=== PATIENT | female | born 1935 | race Caucasian/White ===

== ENCOUNTER 2018-02-07 14:13 | Inpatient (IN) | payer OTHER ==
[~2018-02-07] VITALS: Ht 152.4 cm; Wt 116.2 kg
[~2018-02-07 14:13] MED LIST: ADV250/50 INH; COL100 PO; DALIRESP500 MC1 PO; FUROSEMIDE40 MG PO; GABAPENTIN600 M1 PO; LEVOTHYROXIN0.075 M2 PO; MIRAPEX0.25 MG PO; NEXIUM40 MG PO; NORCO1 TA2 PO; PREDNISONE2.5 MG PO; SPIRIVA18 MC1 IH; XANAX0.5 MG PO
[2018-02-07 14:19] VITALS: Ht 152.4 cm; Wt 116.2 kg
[2018-02-07 16:05] LABS: BASOPHIL % 0.5 % (0-2); PLATELET COUNT 227 x10^3mcL (130-400)
[2018-02-07 16:12] LABS: microscopic required? NO
[2018-02-07 16:15] LABS: CALCIUM 8.9 mg/dL (8.5-10.1); CARBON DIOXIDE 29.9 mmol/L (21-32); CHLORIDE SERUM 101 mmol/L (98-107); CREATININE SERUM 0.8 mg/dL (0.6-1.0); GLUCOSE SERUM 88 mg/dL (74-106); SODIUM SERUM 138 mmol/L (136-145)
[2018-02-07 16:17] LABS: UA SPECIFIC GRAVITY <=1.005 (1.005-1.035); urine erythrocyte NEGATIVE (NEGATIVE)
[2018-02-07 16:20] LABS: ALBUMIN 3.5 g/dL (3.4-5.0); ALKALINE PHOSPHATASE 94 U/L (46-116); ALT/SGPT 25 U/L (14-59); AST/SGOT 24 U/L (15-37); BILIRUBIN TOTAL 0.3 mg/dL (0.20-1.00); TOTAL PROTEIN, SERUM 7.6 g/dL (6.4-8.2)
[2018-02-07] MEDS ORDERED: NATURE'S BLEND F1 MG PO (16:23)
[2018-02-07] MEDS ORDERED: MULTI-VITAMINS1 TAB PO (16:24)
[2018-02-07] MEDS ORDERED: OSTERA TABLET1 EACH PO (16:24)
[2018-02-07] MEDS ORDERED: NATURE'S BLEND500 MG PO (16:24)
[2018-02-07 16:31] LABS: RED CELL DISTRIBUTION WIDTH 15.1 % (11.5-14.5)
[2018-02-07 18:14] VITALS: BP 121/70
[2018-02-07 19:05] VITALS: BP 102/48
[2018-02-07 19:50] VITALS: BP 116/52
[2018-02-08 05:38] VITALS: BP 111/58
[2018-02-08 06:59] LABS: ALKALINE PHOSPHATASE 77 U/L (46-116); ALT/SGPT 22 U/L (14-59); AST/SGOT 24 U/L (15-37); BILIRUBIN TOTAL 0.44 mg/dL (0.20-1.00); CALCIUM 8.7 mg/dL (8.5-10.1); CHLORIDE SERUM 105 mmol/L (98-107); CREATININE SERUM 0.8 mg/dL (0.6-1.0); GLUCOSE SERUM 93 mg/dL (74-106); MAGNESIUM 2.2 mg/dL (1.8-2.4); POTASSIUM SERUM 4.3 mmol/L (3.5-5.1); SODIUM SERUM 140 mmol/L (136-145); TOTAL PROTEIN, SERUM 6.5 g/dL (6.4-8.2)
[2018-02-08 07:01] LABS: BASOPHIL % 0.4 % (0-2); PLATELET COUNT 237 x10^3mcL (130-400)
[2018-02-08 07:02] LABS: ALBUMIN 2.9 g/dL (3.4-5.0)
[2018-02-08 07:05] LABS: RED CELL DISTRIBUTION WIDTH 14.9 % (11.5-14.5)
[2018-02-08 08:40] VITALS: BP 110/50
[2018-02-08 14:27] VITALS: BP 117/50
[2018-02-08 17:20] VITALS: BP 109/54
[2018-02-08 20:42] VITALS: BP 118/57
[2018-02-09 05:16] VITALS: BP 133/58
[2018-02-09 06:09] LABS: BASOPHIL % 0.4 % (0-2); PLATELET COUNT 226 x10^3mcL (130-400)
[2018-02-09 06:19] LABS: RED CELL DISTRIBUTION WIDTH 14.8 % (11.5-14.5)
[2018-02-09 06:26] LABS: ALKALINE PHOSPHATASE 70 U/L (46-116); ALT/SGPT 18 U/L (14-59); AST/SGOT 18 U/L (15-37); BILIRUBIN TOTAL 0.5 mg/dL (0.20-1.00); CALCIUM 8.3 mg/dL (8.5-10.1); CARBON DIOXIDE 28.9 mmol/L (21-32); CHLORIDE SERUM 104 mmol/L (98-107); CREATININE SERUM 0.7 mg/dL (0.6-1.0); GLUCOSE SERUM 88 mg/dL (74-106); MAGNESIUM 2.2 mg/dL (1.8-2.4); PHOSPHOROUS 3.4 mg/dL (2.5-4.9); POTASSIUM SERUM 3.7 mmol/L (3.5-5.1); SODIUM SERUM 141 mmol/L (136-145)
[2018-02-09 06:29] LABS: ALBUMIN 2.7 g/dL (3.4-5.0); TOTAL PROTEIN, SERUM 6.1 g/dL (6.4-8.2)
[2018-02-09 08:50] VITALS: BP 124/68
[2018-02-09 13:35] VITALS: BP 146/76
[2018-02-09 15:34] VITALS: BP 146/76
== END 2018-02-09 17:18 | DRG 391 ==
LOC: ED 14:13 → DU 17:06
PROVIDERS: Emergency Medicine; Internal Medicine Pulmonary Disease
DX: A09 Infectious gastroenteritis and colitis, unspecified (principal); G93.41 Metabolic encephalopathy; Z68.41 Body mass index [BMI] 40.0-44.9, adult; E86.0 Dehydration; R26.81 Unsteadiness on feet; R55 Syncope and collapse; H57.02 Anisocoria; E03.9 Hypothyroidism, unspecified; J44.9 Chronic obstructive pulmonary disease, unspecified; M19.90 Unspecified osteoarthritis, unspecified site; E66.01 Morbid (severe) obesity due to excess calories; Z80.0 Family history of malignant neoplasm of digestive organs; Z79.52 Long term (current) use of systemic steroids; Z79.1 Long term (current) use of non-steroidal anti-inflammatories (NSAID); Z79.891 Long term (current) use of opiate analgesic
CPT/HCPCS: 97110-GP; 97116-GP; 97530-GP; J1644; J3490; J7030; J7512; J7620; J7626; Q0092